=== PATIENT | female | born 1930 | race Caucasian/White ===

== ENCOUNTER 2016-08-26 06:31 | Emergency (ER) | payer MEDICARE ==
--- NOTE | 2016-09-10 15:27 | ER ---
ADMIT: 08/26/2016 RM/LOC: ER [facility] MR#: [id number] [place], [place] [id number] LESLIE STEWART [address] [place] [address] Emergency Room Report SEX: F AGE: 86 : 1930 DATE: 08/26/2016 ADDENDUM: An 86-year-old white female, coming in with palpitations. I refer you to Dr. Baldwin's T-sheet. Essentially, she has a history of proximal atrial fibrillation. CBC, chemistry normal except potassium little borderline at 3.3. EKG now is back to normal sinus rhythm. I think she goes in and out on this. We are going to put a ZIO patch on her. Suggested increasing her potassium by diet, and then follow up with [facility] in 10 to 14 days. CONDITION ON DISCHARGE: Good. Santino Morales MD/ daphney JOB #: [id number] CC: Arnold Lopez MD, Attending Physician Ortega Armendariz MD, Family Physician
== END 2016-08-26 08:50 | disposition home or self-care (01) ==
LOC: ER 06:31
DX: I48.0 Paroxysmal atrial fibrillation (principal); I10 Essential (primary) hypertension; G20 Parkinson's disease; Z90.710 Acquired absence of both cervix and uterus